=== PATIENT | male | born 1985 | race Caucasian/White ===

== ENCOUNTER 2024-08-21 02:48 | Emergency (ER) | payer OTHER ==
[2024-08-21 03:19] VITALS: BP 118/80; PULSE 64; RESP 14; TEMP 98.4; BMI 30.7
[2024-08-21] MEDS ORDERED: ACETAMINOPHEN INJECTION 100 ML ONE (03:37)
[2024-08-21] MEDS: ACETAMINOPHEN 1000 MG/100 ML BAG IVPB ONE (03:51)
[2024-08-21] MEDS: SODIUM CHLORIDE 0.9% 1000 ML INFUS.BAG IV ONE (03:51)
[2024-08-21 04:50] LABS: ABSOLUTE IMMATURE GRANULOCYTES 0.01 x10^3/uL (0.0-0.031); BASOPHILS # 0.07 x10^3/uL (0.01-0.08); EOSINOPHIL % 2.5 % (0.8-7.0); EOSINOPHILS # 0.22 x10^3/uL (0.04-0.54); HEMOGLOBIN 14.2 g/dL (13.7-17.5); MCHC 31.6 g/dl (32.3-36.5); MEAN CELL VOLUME 90.2 fl (79.0-92.2); MEAN PLT VOLUME 12.3 fl (9.4-12.4); MONOCYTE # 0.48 x10^3/uL (0.30-0.82); MONOCYTE % 5.5 % (5.3-12.2); PLATELET COUNT 169 x10^3/uL (163-337); RDW 13.7 % (12.0-15.6)
[2024-08-21 05:09] LABS: POTASSIUM 3.7 mmol/L (3.5-5.1)
[2024-08-21 05:12] LABS: ALBUMIN 4.2 g/dl (3.4-5.0); BLOOD UREA NITROGEN 21.5 mg/dL (7-18); CALCIUM 9.6 mg/dL (8.5-10.1)
[2024-08-21 05:15] LABS: CREATININE 0.9 mg/dL (0.55-1.3)
[2024-08-21 05:17] LABS: BILIRUBIN,TOTAL 0.9 mg/dL (0.2-1); TOT PROT 7.6 g/dl (6.4-8.2)
[2024-08-21 06:40] LABS: HCV DIAGNOSTIC IN-HOUSE W/RFLX NON-REACTIVE (NONREACTIVE); HIV INTERPRETATION NEGATIVE (NEGATIVE)
== END 2024-08-21 07:12 | disposition home or self-care (01) ==
LOC: FER 02:48
PROC: 3E033NZ Introduction of Analgesics, Hypnotics, Sedatives into Peripheral Vein, Percutaneous Approach (ICD-10-PCS; principal; 2024-08-21)
DX: K80.70 Calculus of gallbladder and bile duct without cholecystitis without obstruction (principal); R10.31 Right lower quadrant pain
CPT/HCPCS: 36415; 74177-TC; 76705-TC; 76775-TC; 80053; 83690; 85025; 86803; 86850; 86900; 86901; 87389; 99285-25